=== PATIENT | male | born 1960 | race Caucasian/White ===

== ENCOUNTER → 2020-02-29 | Outpatient (CLI) | payer SELFPAY ==
[2020-02-29 14:43] LABS: BASO # 0.1 10*3/uL (0.0-0.1); BASO % 0.4 % (0.0-1.0); EOS # 0.2 10*3/uL (0.0-0.4); EOS % 2.2 % (1.0-4.0); HEMATOCRIT 45.4 % (42.0-52.0); LYMPH # 0.9 10*3/uL (1.3-4.4); LYMPH % 8.3 % (27.0-41.0); MEAN CORPUSCULAR HGB 28.1 pg (27.0-31.0); MEAN CORPUSCULAR HGB CONC 30.2 g/dl (33.0-37.0); MEAN PLATELET VOLUME 10.6 fl (9.6-12.3); MONO # 0.7 10*3/uL (0.1-1.0); MONO % 6.6 % (3.0-9.0); NEUT # 9.1 10*3/uL (2.3-7.9); NEUT % 81.9 % (47.0-73.0); PLATELET COUNT AUTOMATED 245 10*3/uL (130-400); RED BLOOD COUNT 4.88 10*6/uL (4.50-5.90); RED CELL DISTRI WIDTH 16.3 % (0-14.5); WHITE BLOOD COUNT 11.1 10*3/uL (4.8-10.8)
[2020-02-29 14:53] LABS: INTERNATIONAL NORM RATIO 1.1 (2.0-3.5)
[2020-02-29 15:14] LABS: ALBUMIN 3.3 gm/dl (3.1-4.5); ALKALINE PHOSPHATASE 79 U/L (45-117); BUN 20 mg/dl (7-24); CHLORIDE 101 mmol/L (98-107); CHOLESTEROL 133 mg/dL (<200); CREATININE 1.45 mg/dL (0.70-1.30); HDL CHOLESTEROL 63 mg/dl (40-60); LDL CHOLESTEROL 56 mg/dL (9-159); POTASSIUM 4.5 mmol/L (3.5-5.1); SGOT/AST 24 IU/L (3-35); SGPT/ALT 22 U/L (12-78); SODIUM 139 mmol/L (136-145); TOTAL PROTEIN 7.9 gm/dL (6.4-8.2); TRIGLYCERIDES 68 mg/dl (<150); VLDL CHOLESTEROL 14 mg/dL (6-40)
== END | disposition home or self-care (01) ==
LOC: RESCLI 12:27
PROVIDERS: Internal Medicine; ATTEND Emergency Medicine
DX: I48.91 Unspecified atrial fibrillation (principal); I10 Essential (primary) hypertension; M19.90 Unspecified osteoarthritis, unspecified site; M1A.9XX0 Chronic gout, unspecified, without tophus (tophi); R25.2 Cramp and spasm; E11.9 Type 2 diabetes mellitus without complications; M79.89 Other specified soft tissue disorders; E66.01 Morbid (severe) obesity due to excess calories; Z79.899 Other long term (current) drug therapy; Z79.01 Long term (current) use of anticoagulants; Z12.39 Encounter for other screening for malignant neoplasm of breast; Z79.84 Long term (current) use of oral hypoglycemic drugs; Z98.890 Other specified postprocedural states

== ENCOUNTER → 2020-03-11 | Outpatient (CLI) | payer SELFPAY ==
[2020-03-11 13:12] LABS: BUN 22 mg/dl (7-24); CHLORIDE 100 mmol/L (98-107); CREATININE 1.45 mg/dL (0.70-1.30); POTASSIUM 3.9 mmol/L (3.5-5.1); SODIUM 136 mmol/L (136-145)
[2020-03-12 11:09] LABS: CREATININE,URINE 32.5 mg/dL (Not Estab.); MICRO ALBUMIN/CRE RATIO <9 (0-29)
== END | disposition home or self-care (01) ==
LOC: RESCLI 03-06 10:04
PROVIDERS: Student in an Organized Health Care Education/Training Program; ATTEND Student in an Organized Health Care Education/Training Program
DX: I48.91 Unspecified atrial fibrillation (principal); I10 Essential (primary) hypertension; E11.9 Type 2 diabetes mellitus without complications; M1A.9XX0 Chronic gout, unspecified, without tophus (tophi); R25.2 Cramp and spasm; M79.89 Other specified soft tissue disorders; Z79.84 Long term (current) use of oral hypoglycemic drugs; Z79.899 Other long term (current) drug therapy; Z98.890 Other specified postprocedural states; Z87.891 Personal history of nicotine dependence

== ENCOUNTER → 2020-04-15 | Outpatient (CLI) | payer SELFPAY | END | disposition home or self-care (01) | LOC: RESCLI 00:56 | PROVIDERS: ATTEND Internal Medicine | DX: I48.91 Unspecified atrial fibrillation (principal); I10 Essential (primary) hypertension; M1A.9XX0 Chronic gout, unspecified, without tophus (tophi); R25.2 Cramp and spasm; M79.89 Other specified soft tissue disorders; R73.09 Other abnormal glucose; N28.9 Disorder of kidney and ureter, unspecified; Z23 Encounter for immunization; Z79.899 Other long term (current) drug therapy; Z87.891 Personal history of nicotine dependence; Z98.890 Other specified postprocedural states ==

== ENCOUNTER → 2020-06-25 | Outpatient (CLI) | payer SELFPAY | END | disposition home or self-care (01) | LOC: RESCLI 00:42 | PROVIDERS: ATTEND Internal Medicine Nephrology | DX: I48.91 Unspecified atrial fibrillation (principal); I10 Essential (primary) hypertension; M1A.9XX0 Chronic gout, unspecified, without tophus (tophi); R25.2 Cramp and spasm; M79.89 Other specified soft tissue disorders; R73.09 Other abnormal glucose; Z79.899 Other long term (current) drug therapy ==

== ENCOUNTER 2025-06-04 11:51 | Inpatient (IN) | payer MEDICARE, OTHER ==
[~2025-06-04] VITALS: Ht 182.8 cm; Wt 213.2 kg
[~2025-06-04 11:51] MED LIST: ACETAZOLAMIDE250 MG PO; AMMONIUM LACTA227 GM T; ANUSOL-HC25 MG R; BUMETANIDE1 MG PO; CALCIUM CARBON500 M3 PO; CITRACAL-D3 ER1 EAC1 PO; COLACE100 MG PO; COMBIVENT RESPIM4 GM INH; DOXYCYCLINE HY100 M3 PO; ELIQUIS5 M1 PO; HYDROCOD-HOMAT1 EACH PO; HYDROCODONE-AC1 EAC1 PO; LACTULOSE20 GM PO; LASIX20 MG PO; LOPRESSOR25 MG PO; METOPROLOL25 MG PO; MUCINEX ER600 MG PO; MUCOSA400 MG PO; NEURONTIN300 MG PO; NYSTATIN1 EAC3 MC; OMNICEF300 MG PO; ONDANSETRON4 MG SL; PANTOPRAZOLE SO40 MG PO; PERCOCET 5-3251 EACH PO; POTASSIUM CHLO20 MEQ PO; PREDNISONE10 MG PO; TOPROL XL25 MG PO; TORSEMIDE100 MG PO; TYLENOL325 M2 PO; VISTARIL25 MG PO; VITAMIN D250 MCG PO; VITAMIN D31250 MC1 PO; VITAMIN D31250 MCG PO; XARE20MG PO; XIFAXAN550 MG PO
[2025-06-04 12:01] VITALS: BP 137/80
[2025-06-04] MEDS ORDERED: ALLERGY RELIEF10 M4 PO (12:38)
[2025-06-04] MEDS ORDERED: FERRETTS325 M1 PO (12:41)
[2025-06-04] MEDS ORDERED: AMOX-CLAV 875-1 EACH PO (12:44)
[2025-06-04] MEDS ORDERED: TAMSULOSIN HCL0.4 MG PO (12:44)
[2025-06-04 13:13] LABS: BASO # 0.1 10*3/uL (0.0-0.1); BASO % 0.7 % (0.0-1.0); EOS # 0.1 10*3/uL (0.0-0.4); EOS % 1.0 % (1.0-4.0); MEAN CELL VOLUME 86.8 fl (80.0-94.0); MEAN CORPUSCULAR HGB 22.2 pg (27.0-31.0); MEAN PLATELET VOLUME 11.1 fl (9.6-12.3); MONO # 1.4 10*3/uL (0.1-1.0); MONO % 11.5 % (3.0-9.0); NEUT # 9.7 10*3/uL (2.3-7.9); NEUT % 77.5 % (47.0-73.0); NUCLEATED RED BLOOD CELL 0.1 10*3/uL (0.0-0.0); NUCLEATED RED BLOOD CELL 0.9 % (0.0-0.0); PLATELET COUNT AUTOMATED 215 10*3/uL (130-400); RED CELL DISTRI WIDTH 20.1 % (0-14.5)
[2025-06-04 13:34] LABS: BUN 31.0 mg/dl (9-23)
[2025-06-04 14:05] VITALS: BP 113/58
[2025-06-04] MEDS ORDERED: SODIUM POLYSTYRENE SULFONATE 15 GM/60 ML BOT PO ONE (15:50)
[2025-06-04] MEDS ORDERED: GUAIFENESIN 600 MG TAB ER PO PRN (16:40)
[2025-06-04] MEDS ORDERED: LACTULOSE 20 GM/30 ML UDC PO SCH (18:00)
[2025-06-04 18:48] VITALS: BP 120/68
[2025-06-04 19:13] LABS: BUN 31.0 mg/dl (9-23)
[2025-06-04 21:20] VITALS: BP 105/62
[2025-06-04] MEDS ORDERED: RIFAXIMIN 550 MG TAB PO SCH (22:00)
[2025-06-04] MEDS ORDERED: acetaZOLAMIDE 250 MG TAB PO SCH (22:00)
[2025-06-04] MEDS ORDERED: BUMETANIDE 1 MG/4 ML VIAL IV SCH (22:00)
[2025-06-04] MEDS ORDERED: GABAPENTIN 300 MG CAP PO SCH (22:00)
[2025-06-04] MEDS ORDERED: APIXABAN 5 MG TAB PO SCH (22:00)
[2025-06-05] VITALS: BP 95/67
[2025-06-05 06:15] LABS: BASO # 0.1 10*3/uL (0.0-0.1); BASO % 0.7 % (0.0-1.0); EOS # 0.1 10*3/uL (0.0-0.4); EOS % 1.5 % (1.0-4.0); MEAN CELL VOLUME 86.9 fl (80.0-94.0); MEAN CORPUSCULAR HGB 21.7 pg (27.0-31.0); MEAN PLATELET VOLUME 10.5 fl (9.6-12.3); MONO # 1.4 10*3/uL (0.1-1.0); MONO % 14.6 % (3.0-9.0); NEUT # 6.8 10*3/uL (2.3-7.9); NEUT % 72.5 % (47.0-73.0); NUCLEATED RED BLOOD CELL 0.1 10*3/uL (0.0-0.0); NUCLEATED RED BLOOD CELL 0.5 % (0.0-0.0); PLATELET COUNT AUTOMATED 199 10*3/uL (130-400); RED CELL DISTRI WIDTH 20.3 % (0-14.5)
[2025-06-05 06:45] LABS: BUN 31 mg/dl (9-23)
[2025-06-05 08:00] VITALS: BP 113/58
[2025-06-05 09:42] LABS: ABG O2 SATURATION 96.8 % (94.0-98.0); ARTERIAL BLOOD GAS PH 7.262 (7.350-7.450); ARTERIAL BLOOD GAS PO2 98.2 mmHg (83.0-108.0)
[2025-06-05 09:46] LABS: ABG BASE EXCESS 9.0 mmol/L (-2.0-3.0)
[2025-06-05] MEDS ORDERED: Vitamin D 1,000 IU TAB (25 MCG) PO SCH (10:00)
[2025-06-05] MEDS ORDERED: DOCUSATE SODIUM 100 MG CAP PO SCH (10:00)
[2025-06-05] MEDS ORDERED: Lidocaine Hydrochloride 10 ML SYR UR ONE (10:30)
[2025-06-05] MEDS ORDERED: Menthol/Zinc Oxide 4 GM THIN T PRN (11:05)
[2025-06-05 12:00] VITALS: BP 118/90
[2025-06-05] MEDS ORDERED: PERFLUTREN PROTEIN-A MICROSPHR 3 ML VIAL IV ONE (13:35)
[2025-06-05 16:00] VITALS: BP 132/78
[2025-06-05 20:00] VITALS: BP 117/55
[2025-06-05] MEDS ORDERED: NYSTATIN 15 GM BOT T SCH (22:00)
[2025-06-05] MEDS ORDERED: CEFEPIME HCL IN DEXTROSE 5 % 50 ML IV SCH (22:00)
[2025-06-05] MEDS ORDERED: Menthol/Zinc Oxide 4 GM THIN T SCH (22:00)
[2025-06-05] MEDS ORDERED: AMMONIUM LACTATE 12% LOTION T SCH (22:00)
[2025-06-06] VITALS: BP 101/68
[2025-06-06 06:29] LABS: BASO # 0.1 10*3/uL (0.0-0.1); BASO % 0.6 % (0.0-1.0); EOS # 0.2 10*3/uL (0.0-0.4); EOS % 1.9 % (1.0-4.0); MEAN CELL VOLUME 85.2 fl (80.0-94.0); MEAN CORPUSCULAR HGB 22.4 pg (27.0-31.0); MEAN PLATELET VOLUME 10.5 fl (9.6-12.3); MONO # 1.2 10*3/uL (0.1-1.0); MONO % 14.4 % (3.0-9.0); NEUT # 6.1 10*3/uL (2.3-7.9); NEUT % 75.8 % (47.0-73.0); NUCLEATED RED BLOOD CELL 0.0 10*3/uL (0.0-0.0); NUCLEATED RED BLOOD CELL 0.4 % (0.0-0.0); PLATELET COUNT AUTOMATED 184 10*3/uL (130-400); RED CELL DISTRI WIDTH 20.3 % (0-14.5)
[2025-06-06 07:43] LABS: ABG O2 SATURATION 97.8 % (94.0-98.0); ARTERIAL BLOOD GAS PH 7.349 (7.350-7.450); ARTERIAL BLOOD GAS PO2 100.4 mmHg (83.0-108.0)
[2025-06-06 07:47] LABS: ABG BASE EXCESS 13.2 mmol/L (-2.0-3.0)
[2025-06-06 07:55] LABS: BUN 28 mg/dl (9-23)
[2025-06-06 08:00] VITALS: BP 111/54
[2025-06-06] MEDS ORDERED: FERROUS SULFATE 325 MG TAB PO SCH (10:00)
[2025-06-06 12:00] VITALS: BP 119/70
[2025-06-06 16:00] VITALS: BP 114/66
[2025-06-06 20:00] VITALS: BP 102/56
[2025-06-07] VITALS: BP 109/55
[2025-06-07 06:29] LABS: BASO # 0.1 10*3/uL (0.0-0.1); BASO % 0.7 % (0.0-1.0); EOS # 0.2 10*3/uL (0.0-0.4); EOS % 2.5 % (1.0-4.0); MEAN CELL VOLUME 86.3 fl (80.0-94.0); MEAN CORPUSCULAR HGB 21.4 pg (27.0-31.0); MEAN PLATELET VOLUME 11.0 fl (9.6-12.3); MONO # 1.2 10*3/uL (0.1-1.0); MONO % 17.0 % (3.0-9.0); NEUT # 5.0 10*3/uL (2.3-7.9); NEUT % 68.0 % (47.0-73.0); NUCLEATED RED BLOOD CELL 0.1 10*3/uL (0.0-0.0); NUCLEATED RED BLOOD CELL 0.7 % (0.0-0.0); PLATELET COUNT AUTOMATED 176 10*3/uL (130-400); RED CELL DISTRI WIDTH 20.2 % (0-14.5)
[2025-06-07 06:50] LABS: BUN 24 mg/dl (9-23)
[2025-06-07 08:00] VITALS: BP 154/96
[2025-06-07] MEDS ORDERED: POTASSIUM CHLORIDE 20 MEQ TAB PO SCH ×2 (10:00)
[2025-06-07 12:00] VITALS: BP 121/97
[2025-06-07 16:00] VITALS: BP 129/82
[2025-06-07 20:00] VITALS: BP 110/62
[2025-06-08] VITALS: BP 156/83
[2025-06-08 06:09] LABS: BUN 25 mg/dl (9-23)
[2025-06-08 06:11] LABS: MEAN CELL VOLUME 86.5 fl (80.0-94.0); MEAN CORPUSCULAR HGB 22.0 pg (27.0-31.0); MEAN PLATELET VOLUME 10.4 fl (9.6-12.3); NUCLEATED RED BLOOD CELL 0.1 10*3/uL (0.0-0.0); NUCLEATED RED BLOOD CELL 1.4 % (0.0-0.0); PLATELET COUNT AUTOMATED 162 10*3/uL (130-400); RED CELL DISTRI WIDTH 20.1 % (0-14.5)
[2025-06-08 06:20] LABS: MANUAL DIFF REFLEX YES
[2025-06-08 07:03] LABS: PLATELET SUFFICIENCY NORMAL (NORMAL)
[2025-06-08 07:04] LABS: STOMATOCYTE FEW
[2025-06-08 08:00] VITALS: BP 140/113
[2025-06-08] MEDS ORDERED: POTASSIUM CHLORIDE 20 MEQ TAB PO ONE ×2 (09:20→15:30)
[2025-06-08 12:00] VITALS: BP 96/52
[2025-06-08 16:00] VITALS: BP 145/112
[2025-06-08 20:00] VITALS: BP 118/79
[2025-06-09] VITALS: BP 100/66
[2025-06-09 06:10] LABS: MANUAL DIFF REFLEX YES; MEAN CELL VOLUME 85.4 fl (80.0-94.0); MEAN CORPUSCULAR HGB 21.4 pg (27.0-31.0); MEAN PLATELET VOLUME 10.6 fl (9.6-12.3); NUCLEATED RED BLOOD CELL 0.1 10*3/uL (0.0-0.0); NUCLEATED RED BLOOD CELL 1.3 % (0.0-0.0); PLATELET COUNT AUTOMATED 174 10*3/uL (130-400); RED CELL DISTRI WIDTH 20.2 % (0-14.5)
[2025-06-09 06:28] LABS: BUN 28 mg/dl (9-23)
[2025-06-09 06:40] LABS: BASOPHILS 2 % (0-1); PLATELET SUFFICIENCY NORMAL (NORMAL)
[2025-06-09 08:00] VITALS: BP 124/92
[2025-06-09 12:00] VITALS: BP 109/62
[2025-06-09 14:30] VITALS: BP 86/60
[2025-06-09 15:35] VITALS: BP 90/58
[2025-06-09 20:00] VITALS: BP 109/59
[2025-06-10] VITALS: BP 130/60
[2025-06-10 06:00] VITALS: BP 121/68
[2025-06-10 06:17] LABS: BUN 28 mg/dl (9-23)
[2025-06-10 06:31] LABS: BASO # 0.1 10*3/uL (0.0-0.1); BASO % 0.6 % (0.0-1.0); EOS # 0.2 10*3/uL (0.0-0.4); EOS % 2.3 % (1.0-4.0); MEAN CELL VOLUME 85.3 fl (80.0-94.0); MEAN CORPUSCULAR HGB 21.7 pg (27.0-31.0); MEAN PLATELET VOLUME 11.2 fl (9.6-12.3); MONO # 1.0 10*3/uL (0.1-1.0); MONO % 12.7 % (3.0-9.0); NEUT # 6.0 10*3/uL (2.3-7.9); NEUT % 74.7 % (47.0-73.0); NUCLEATED RED BLOOD CELL 0.0 10*3/uL (0.0-0.0); NUCLEATED RED BLOOD CELL 0.5 % (0.0-0.0); PLATELET COUNT AUTOMATED 184 10*3/uL (130-400); RED CELL DISTRI WIDTH 20.4 % (0-14.5)
[2025-06-10 08:00] VITALS: BP 113/54
[2025-06-10] MEDS ORDERED: POTASSIUM CHLORIDE 20 MEQ TAB PO ONE (11:25)
[2025-06-10 12:00] VITALS: BP 118/64
[2025-06-11] MEDS ORDERED: Cefepime Hydrochloride 2 GM in SODIUM CHLORIDE 0.9% 50 ML IV SCH (06:00)
== END 2025-06-10 16:10 | DRG 871 ==
LOC: ED 11:51 → 5E 14:42 → EDHOLD 14:42 → 5E 17:30 → EDHOLD 17:30 → 5E 19:46
PROVIDERS: Emergency Medicine; Family Medicine; Internal Medicine Critical Care Medicine; Student in an Organized Health Care Education/Training Program; ADMIT Internal Medicine; ATTEND Internal Medicine
PROC: 5A09357 Assistance with Respiratory Ventilation, Less than 24 Consecutive Hours, Continuous Positive Airway Pressure (ICD-10-PCS; principal; 2025-06-04)
PROC: 5A09357 Assistance with Respiratory Ventilation, Less than 24 Consecutive Hours, Continuous Positive Airway Pressure (ICD-10-PCS; 2025-06-05)
PROC: 5A09357 Assistance with Respiratory Ventilation, Less than 24 Consecutive Hours, Continuous Positive Airway Pressure (ICD-10-PCS; 2025-06-06)
PROC: 5A09357 Assistance with Respiratory Ventilation, Less than 24 Consecutive Hours, Continuous Positive Airway Pressure (ICD-10-PCS; 2025-06-08)
PROC: 5A09357 Assistance with Respiratory Ventilation, Less than 24 Consecutive Hours, Continuous Positive Airway Pressure (ICD-10-PCS; 2025-06-09)
PROC: 5A09357 Assistance with Respiratory Ventilation, Less than 24 Consecutive Hours, Continuous Positive Airway Pressure (ICD-10-PCS; 2025-06-10)
DX: A41.9 Sepsis, unspecified organism (principal); I50.33 Acute on chronic diastolic (congestive) heart failure; J15.69 Pneumonia due to other Gram-negative bacteria; J96.21 Acute and chronic respiratory failure with hypoxia; J96.22 Acute and chronic respiratory failure with hypercapnia; N17.0 Acute kidney failure with tubular necrosis; E87.1 Hypo-osmolality and hyponatremia; E44.0 Moderate protein-calorie malnutrition; E66.2 Morbid (severe) obesity with alveolar hypoventilation; Z68.43 Body mass index [BMI] 50.0-59.9, adult; I11.0 Hypertensive heart disease with heart failure; R65.11 Systemic inflammatory response syndrome (SIRS) of non-infectious origin with acute organ dysfunction; I50.9 Heart failure, unspecified; Z20.822 Contact with and (suspected) exposure to COVID-19; Z66 Do not resuscitate; I25.10 Atherosclerotic heart disease of native coronary artery without angina pectoris; I48.91 Unspecified atrial fibrillation; E78.5 Hyperlipidemia, unspecified; E87.5 Hyperkalemia; D72.829 Elevated white blood cell count, unspecified; D64.9 Anemia, unspecified; E55.9 Vitamin D deficiency, unspecified; Z79.01 Long term (current) use of anticoagulants